=== PATIENT | female | born 1940 | race Caucasian/White ===

== ENCOUNTER 2016-09-23 01:40 | Observation (INO) | payer MEDICARE ==
[2016-09-23] MEDS ORDERED: Ondansetron INJ* 2 MG/ML VIAL IV ONE (01:54)
[2016-09-23 03:18] LABS: Hematocrit 28 % (35-47); Mean Corpuscular HGB Conc 32 g/dl (31-36); Mean Corpuscular Hemoglobin 27 pg (27-31); Mean Corpuscular Volume 84 fL (80-97); Mean Platelet Volume 10 um3 (7.4-10.4); Red Blood Count 3.31 10^6/ul (4.0-5.4); Red Cell Distribution Width 15 % (10.5-15); White Blood Count 7.7 10^3/ul (3.5-10.8)
[2016-09-23 03:35] LABS: Albumin 3.6 g/dL (3.2-5.2); BUN/Creatinine Ratio 33.3 (8-20); Calcium 8.8 mg/dL (8.6-10.3); EGFR African American 96.9 (>60); EGFR Non-African American 75.3 (>60); Globulin 3.1 g/dL (2-4); Total Bilirubin 0.7 mg/dL (0.2-1.0); Total Protein 6.7 g/dL (6.4-8.9)
[2016-09-23] MEDS: NS 0.9% 1000 ML* 1,000 ML IV ONE ×2 (04:16→06:29)
[2016-09-23] MEDS ORDERED: Iodixanol* (CONTRAST) 320 MG/ML 100 ML SDV IV ONE (04:48)
[2016-09-23] MEDS ORDERED: Acetaminophen TAB* 325 MG PO STA (05:32)
[2016-09-23] MEDS ORDERED: Morphine INJ* 4 MG/ML 1 ML SYRINGE IV ONE (05:48)
[2016-09-23] MEDS ORDERED: diPHENhydraMINE IV* 50 MG/ML 1 ml VIAL (BENADRYL) ONE (05:56)
[2016-09-23] MEDS ORDERED: diPHENhydraMINE IV* 50 MG/ML 1 ml VIAL (BENADRYL) IV ONE (05:56)
--- NOTE | 2016-09-23 06:12 | ED ---
Nic Prince Matthew, scribed for Ute Craftuel on 09/23/16 at 0445 . Abdominal Pain/Female - HPI Summary HPI Summary: A 76 y/o female presents to the ED with diffuse abdominal pain since 17:00 yesterday. The pain is rated 10/10 in severity. Associated symptoms include nausea, vomiting, and fever. The patient denies chest pain and SOB. She has a Hx of chronic diarrhea. - History of Current Complaint Stated Complaint: NAUSEA/VOMITING Time Seen by Provider: 09/23/16 01:46 Hx Obtained From: Patient ?: No Onset/Duration: Lasting Days, Still Present Timing: Constant Severity Initially: Moderate Severity Currently: Moderate Pain Intensity: 10 Pain Scale Used: 0-10 Numeric Location: Diffuse Radiates: No Associated Signs and Symptoms: Positive: Fever, Nausea, Vomiting. Negative: Chest Pain Allergies/Adverse Reactions: Allergies Allergy/AdvReac Type Severity Reaction Status Date / Time Heparin Allergy Severe THROMBOCYTO Verified 11/03/13 14:17 PENIA Omeprazole Allergy Severe Diarrhea Verified 11/03/13 14:17 Venlafaxine [From Effexor] Allergy Severe SWEATING Verified 11/03/13 14:17 Penicillins Allergy Mild Rash Verified 11/03/13 14:17 Statins Allergy Muscle Ache Verified 11/03/13 14:17 PMH/Surg Hx/FS Hx/Imm Hx Endocrine/Hematology History: Reports: Hx Thyroid Disease - TAKES SYNTHROID, Hx Anemia Denies: Hx Diabetes Cardiovascular History: Reports: Hx Angina, Hx Congestive Heart Failure, Hx Coronary Artery Disease, Hx Hypercholesterolemia, Hx Hypertension, Other Cardiovascular Problems/Disorders - 3 STENTS Denies: Hx Aneurysm, Hx Congenital Heart Disease, Hx Deep Vein Thrombosis, Hx Myocardial Infarction, Hx Valvular Heart Disease Respiratory History: Reports: Hx Sleep Apnea, Other Respiratory Problems/ Disorders - hx Pneumonia EX SMOKER 20 YEARS AGO Denies: Hx Asthma, Hx Chronic Obstructive Pulmonary Disease (COPD) GI History: Reports: Hx Gastroesophageal Reflux Disease Comment Only: Other GI Disorders - diverticulitis,gerd History: Reports: Other Problems/Disorders - IBS, GI bleed Denies: Hx Renal Disease Musculoskeletal History: Reports: Other Musculoskeletal History - fibromyalgia Sensory History: Reports: Hx Cataracts - SURGICALLY REMOVED, Hx Contacts or Glasses, Hx Hearing Aid Comment Only: 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 appy removed 40 yrs ago, tuba ligation, hysterectomy. decompression 5th facial nerve. ganglion removed foot. cataracts. cholecystectomy. 5 cardiac stents Infectious Disease History: No Infectious Disease History: Denies: Traveled Outside the [place] in Last 30 Days - Family History Known Family History: Positive: Cardiac Disease Family History: FHx of breast CA - Social History Alcohol Use: Occasionally Substance Use Type: Reports: None Smoking Status (MU): Former Smoker Review of Systems Positive: Fever Eyes: Negative ENT: Negative Cardiovascular: Negative Negative: Chest Pain Respiratory: Negative Negative: Shortness Of Breath Positive: Abdominal Pain - Diffuse, Vomiting, Nausea Genitourinary: Negative Musculoskeletal: Negative Skin: Negative Neurological: Negative Psychological: Normal All Other Systems Reviewed And Are Negative: Yes Physical Exam Triage Information Reviewed: Yes Vital Signs On Initial Exam: Initial Vitals Temp Pulse Resp BP Pulse Ox 98.8 F 70 15 135/57 95 09/23/16 01:52 09/23/16 01:52 09/23/16 01:52 09/23/16 01:52 09/23/16 01:52 Vital Signs Reviewed: Yes Appearance: Positive: Well-Appearing, No Pain Distress Skin: Positive: Warm, Skin Color Reflects Adequate Perfusion, Dry Head/Face: Positive: Normal Head/Face Inspection Eyes: Positive: EOMI, HAYLEY ENT: Positive: Normal ENT inspection Neck: Positive: Supple, Nontender Respiratory/Lung Sounds: Positive: Clear to Auscultation, Breath Sounds Present Cardiovascular: Positive: RRR, Pulses are Symmetrical in both Upper and Lower Extremities Abdomen Description: Positive: Soft, Other: - diffuse abdominal pain Bowel Sounds: Positive: Present Musculoskeletal: Positive: Normal, Strength/ROM Intact Neurological: Positive: Normal, Sensory/Motor Intact, Alert, Oriented to Person Place, Time Psychiatric: Positive: Affect/Mood Appropriate Diagnostics - Vital Signs Vital Signs Temp Pulse Resp BP Pulse Ox 09/23/16 01:52 98.8 F 98 15 135/57 95 - Laboratory Result Diagrams: 09/23/16 03:03 09/23/16 03:03 Lab Statement: Any lab studies that have been ordered have been reviewed, and results considered in the medical decision making process. - Radiology CXR Xray Interpretation: No Acute Changes Radiology Interpretation Completed By: ED Physician - CT CT A/P CT Interpretation: Positive (See Comments) - Mild diffuse mural thickening of the colon may represent colitis or could be due to portal hypertensive colopathy. Abdominal Pain Fem Course/Dx - Course Course Of Treatment: A 76 y/o female presents to the ED with diffuse abdominal pain since 17:00 yesterday. The pain is rated 10/10 in severity. Associated symptoms include nausea, vomiting, and fever. The patient denies chest pain and SOB. She has a Hx of chronic diarrhea. Labs were reviewed. CXR shows no acute changes. CT A/P shows mild diffuse mural thickening of the colon may represent colitis or could be due to portal hypertensive colopathy. In the ED course, the patient was given IV fluids, morphine, Tylenol, Zofran, and Benadryl. Discussed the case with Dr. Osuna who will admit the patient into his services. - Diagnoses Provider Diagnoses: Colitis - Provider Notifications Discussed Care Of Patient With: Dr. Osuna (Hospitalist) at 06:04 -- Notified of patient's history and will start the admission of the patient before passing the patient on to the day team. Discharge - Discharge Plan Condition: Stable Disposition: ADMITTED TO [facility] Referrals: Cecille Ahn MD [Primary Care Provider] - The documentation as recorded by the Nic palacios Matthew accurately reflects the service I personally performed and the decisions made by , Houston Craft.
[2016-09-23] MEDS ORDERED: NS 0.9% 1000 ML* 1,000 ML IV SCH ×2 (06:15→08:00)
[2016-09-23] MEDS ORDERED: Ondansetron INJ* 2 MG/ML VIAL IV PRN (07:47)
[2016-09-23] MEDS ORDERED: Nitroglycerin TAB 0.4 MG* 0.4 MG TAB SL PRN (07:48)
[2016-09-23] MEDS ORDERED: Modafinil TAB* 100 MG PO PRN (07:48)
[2016-09-23] MEDS: Aspirin EC Low Dose* 81 MG TAB.EC PO SCH (07:59)
[2016-09-23] MEDS: Gabapentin CAP(*) 300 MG PO SCH ×3 (07:59→21:19)
[2016-09-23] MEDS: Metoprolol Tartrate TAB* 50 mg PO SCH ×2 (07:59→21:20)
[2016-09-23] MEDS ORDERED: Enoxaparin(*) 40 MG/0.4 ML SYR SUBCUT SCH (08:00)
--- NOTE | 2016-09-23 08:44 | RAD ---
Indication: Abdominal pain, chest pain. Single frontal view of the chest performed at 0311 hours was reviewed. Comparison is made with previous exam dated May 06, 2013. No mediastinal shift is noted. Heart is of normal size and configuration. Lung ro appear clear. IMPRESSION: NO ACTIVE CARDIOPULMONARY DISEASE IS NOTED.
--- NOTE | 2016-09-23 09:15 | RAD ---
Indication: Abdominal pain, diarrhea. Contrast: Administered 99.9 ml of VISAPAQUE 320 mgi/ml CT of the abdomen and pelvis was performed after oral and IV contrast administration. Coronal and sagittal reconstructed images were obtained. The lung bases imaging no pleural fluid, nodules or masses. Heart demonstrates no pericardial effusion. The liver is normal in size. The liver demonstrates nodular contour consistent with cirrhosis. Small amount of ascites is noted. The spleen measures up to 13 cm. Common duct is not dilated. The gallbladder has been surgically resected. Common duct is not dilated. Pancreas demonstrates no mass or pancreatic ductal dilatation. No adrenal lesions are noted. The kidneys demonstrate symmetric nephrograms with no focal lesions. Low density lesion in the lower pole of the left kidney measuring 14 mm. Atherosclerotic aorta is noted. No dilated loops of bowel are noted. Urinary bladder is unremarkable. Small retroperitoneal lymph nodes are noted. They measure 2 7 mm in short axis just at the bifurcation. There is diffuse submucosal edema of the colon. The possibility of colitis or portal intensive colopathy should BE considered. Correlate with history of portal hypertension. IMPRESSION: CIRRHOSIS OF THE LIVER. SMALL AMOUNT OF ASCITES IS NOTED. SUBMUCOSAL EDEMA OF THE COLON WHICH MAY REPRESENT COLITIS ALTHOUGH THE POSSIBILITY OF PORTAL HYPERTENSIVE COLOPATHY SHOULD BE CONSIDERED.
[2016-09-23] MEDS: Cyanocobalamin TAB* 500 MCG PO SCH (09:59)
[2016-09-23] MEDS: Levothyroxine TAB* 88 MCG TAB PO SCH (09:59)
[2016-09-23] MEDS: Loperamide CAP* 2 MG PO PRN ×3 (11:45→17:26)
--- NOTE | 2016-09-23 18:00 | HP ---
HISTORY AND PHYSICAL: DATE OF ADMISSION: 09/23/16 PRIMARY CARE PHYSICIAN: Cecille See MD CHIEF COMPLAINT: Abdominal pain, nausea, and vomiting. HISTORY OF PRESENT ILLNESS: Ms. Andujar is a 76-year-old female with past medical history of CAD, iron deficiency anemia, cirrhosis of unknown etiology, TIA, fibromyalgia, and JAJA, who presents to the hospital with abdominal pain, nausea, vomiting, and diarrhea. The patient states she felt well yesterday. She visited her at [facility] and then in the evening she came home and shortly after she got home, she had onset of nausea and vomiting. She states she had 2 to 3 episodes of emesis that was nonbloody and nonbilious. She also had some bloating and diarrhea that has been ongoing. She states there is no blood in the diarrhea. She does have some chronic issues with diarrhea which she usually reports as explosive and made up of undigested food. This seems different. She states this was more oozing and persistent. The patient had some continuing dry heaves and nausea after her bouts of emesis and she was at her toilet at home, she felt very weak and could not go back to bed, so she called EMS. She states she has felt some chills lately. She has stable angina and had some chest discomfort after she had her CT scan but nothing prior to that. She has continued abdominal pain. Denies any shortness of breath, bleeding, dysuria. PAST MEDICAL HISTORY: 1. CAD status post stent placement. 2. Iron deficiency anemia. 3. Depression. 4. GERD. 5. Hypothyroidism. 6. Cirrhosis of unknown etiology. 7. TIA. 8. Fibromyalgia. 9. JAJA. PAST SURGICAL HISTORY: 1. Tonsillectomy. 2. Tubal ligation. 3. Cataract surgery. 4. Cholecystectomy. 5. 5th nerve decompression. 6. Hysterectomy. ALLERGIES: PENICILLIN, METFORMIN, OMEPRAZOLE, EFFEXOR, HEPARIN, and STATINS. FAMILY HISTORY: Significant for mother, two brothers, and a sister with CAD. Father with CAD and intracranial hemorrhage. SOCIAL HISTORY: The patient had smoked for about 17 years about half pack per day. Reports occasional alcohol use like a glass of wine. Denies any illicit drug use. PHYSICAL EXAMINATION GENERAL: The patient is an elderly female, lying in bed, in no apparent distress. VITAL SIGNS: On admission, temperature 98.8, heart rate of 70, respiratory rate of 15, O2 saturation 95% on room air, blood pressure 135/57. HEENT: Dry mucous membranes. No cervical adenopathy. Anicteric sclerae. CARDIOVASCULAR: Regular rate and rhythm. S1 and S2 present. No murmurs, gallops, or rubs. LUNGS: Clear to auscultation bilaterally. No wheezes, rales, or rhonchi. ABDOMEN: Soft, tender to palpation in periumbilical epigastric area and bilateral lower quadrants. No rebound or guarding. Bowel sounds are hyperactive. EXTREMITIES: Mild lower extremity edema. NEURO: The patient is alert and oriented x3. No focal neurological deficits. LABORATORY AND DIAGNOSTICS: White blood cell count of 7.7, hematocrit of 28, platelets of 136. INR of 1.02. Sodium of 136, potassium 4.0, chloride of 104, carbon dioxide 23, BUN of 25, creatinine 0.75, glucose of 137, lactic acid of 1.5. LFTs within normal limits. Troponin of 0.00. Lipase of 26. CT abdomen and pelvis shows cirrhosis of the liver, small amount of ascites, submucosal edema of the colon which may represent colitis or the possibility of portal hypertensive colopathy should be considered. Chest x-ray personally reviewed shows no acute disease. EKG shows normal sinus rhythm. C. diff negative. ASSESSMENT AND PLAN: Viral gastroenteritis in a 76-year-old female with a past medical history of coronary artery disease, iron deficiency anemia, depression, newly diagnosed cirrhosis of unknown etiology, gastroesophageal reflux disease, hypothyroidism, transient ischemic attack, fibromyalgia, and obstructive sleep apnea. 1. Viral gastroenteritis. We will treat supportively with antiemetics, started IV fluids; however, once the patient got to the floor, she had resolution of her nausea and started taking clear liquids and tolerated that well. We will hold on additional IV fluids. At this time, she does not seem overly dehydrated. No clear evidence of infection at this point. No indication for antibiotics. 2. Coronary artery disease status post stent placement. Continue home aspirin and metoprolol. 3. Cirrhosis. Currently being worked up as an outpatient. Has minimal ascites on exam. No evidence of encephalopathy or LFT abnormalities. 4. Hypothyroidism. Continue home Synthroid. 5. Hypertension. Hold home irbesartan. 6. Thrombocytopenia. Seems like this has been an ongoing issue for the patient 2/2 cirrhosis 7. Code status. The patient is a DNR. TIME SPENT: Total time spent on this admission, 45 minutes, more than half the time spent face to face with the patient counseling and coordinating care. CC: Cecille See MD* [id number]/[facility] #: [id number] MTDD
[2016-09-23] MEDS: HYDROmorphone* 1 MG/ML 1 ML SYR IV SLOW PU PRN ×2 (18:18→22:21)
[2016-09-24] MEDS: Levothyroxine TAB* 88 MCG TAB PO SCH (06:07)
[2016-09-24 06:47] LABS: BUN/Creatinine Ratio 17.4 (8-20); Calcium 7.9 mg/dL (8.6-10.3); EGFR African American 106.7 (>60); EGFR Non-African American 82.9 (>60); Potassium 3.3 mmol/L (3.5-5.0)
[2016-09-24 09:20] VITALS: BP 130/56
[2016-09-24] MEDS: Aspirin EC Low Dose* 81 MG TAB.EC PO SCH (09:35)
[2016-09-24] MEDS: Cyanocobalamin TAB* 500 MCG PO SCH (09:35)
[2016-09-24] MEDS: Gabapentin CAP(*) 300 MG PO SCH (09:35)
[2016-09-24] MEDS: Metoprolol Tartrate TAB* 50 mg PO SCH (09:36)
[2016-09-24] MEDS: Loperamide CAP* 2 MG PO PRN (10:31)
--- NOTE | 2016-09-24 10:59 | DCNOTE ---
Patient seen this morning. [place] well overnight, did not have any further diarrhea, N/V. This AM had some recurrence of diarrhea and some mild crampy pain. No N/V. On exam, RRR, s1 and s2 present, no m/g/r, abd soft, mild lower quadrant tenderness, no rebound/guarding, BS+ Labs stable. Has been off IVF since yesterday. Will discharge home with supportive care (imodium, analgesia, antiemetics)
--- NOTE | 2016-09-26 04:28 | DS ---
DISCHARGE SUMMARY: DATE OF ADMISSION: 09/23/16 DATE OF DISCHARGE: 09/24/16 PRIMARY CARE PHYSICIAN: Cecille See MD PRINCIPAL DISCHARGE DIAGNOSIS: Viral gastroenteritis. SECONDARY DIAGNOSES: 1. Coronary artery disease, status post stent placement. 2. Iron deficiency anemia. 3. Depression. 4. Gastroesophageal reflux disease. 5. Hypothyroidism. 6. Cirrhosis of unknown etiology. 7. Transient ischemic attack. 8. Fibromyalgia. 9. Obstructive sleep apnea. DISCHARGE MEDICATION REGIMEN: 1. Loperamide 2 mg by mouth every 4 hours as needed for diarrhea. 2. Zofran 4 mg p.o. every 6 hours as needed for nausea. 3. Simethicone 80 mg by mouth times daily as needed for bloating. 4. Modafinil 100 mg by mouth daily as needed for dizziness. 5. Nitroglycerin 0.4 mg sublingual every 5 minutes as needed for chest pain. 6. Metoprolol 50 mg by mouth 2 times daily. 7. Lasix 40 mg by mouth 2 times daily, to be resumed after diarrhea resolved. 8. Gabapentin 300 mg by mouth 3 times daily. 9. Synthroid 88 mcg by mouth daily. 10. Vitamin D3 5000 units by mouth daily. 11. Vitamin B12 1000 mcg by mouth daily. 12. Aspirin 81 mg by mouth daily. 13. Probiotic 4 mg by mouth daily. 14. Hydrocodone/acetaminophen 5/325 one tablet by mouth every 4 hours as needed for pain. 15. Irbesartan 75 mg by mouth daily. STUDIES DONE DURING HOSPITALIZATION: CT abdomen and pelvis with contrast, impression: Cirrhosis of the liver, small amount of ascites noted, submucosal edema of the colon, which may represent colitis, although the possibility of portal hypertensive colopathy should be considered. Chest x-ray, impression: No active cardiopulmonary disease is noted. HISTORY OF PRESENT ILLNESS AND HOSPITAL SUMMARY: Please see my history and physical for full details. Briefly, Ms. Andujar is a 76-year-old female with a past medical history as above, who presented to the hospital with nausea, vomiting, and diarrhea. By the time the patient arrived in the hospital, her symptoms had largely resolved. She was checked for C. diff, which was negative. She was given Imodium with some improvement of the diarrhea. On the day of admission, she was tolerating a clear diet. The following day, her diet was advanced to solids. She still had some loose stools while in the hospital; however, had no further nausea or vomiting. Her labs remained stable. She was discharged home with Imodium and some other supportive medications. This was felt to be a viral gastroenteritis. Follow up with her PCP as an outpatient. She was also instructed to hold her home Lasix until her diarrhea resolved. TIME SPENT: Total time spent on this discharge 35 minutes. This is summary of the hospitalization. Please see the full medical record for further details. CC: Cecille See MD* [id number]/[facility] #: [id number] MTDD
== END 2016-09-24 11:55 | disposition home or self-care (01) ==
LOC: ED 01:40 → MEDTELE 07:20
PROVIDERS: ADMIT Hospitalist; ATTEND Hospitalist
DX: A08.4 Viral intestinal infection, unspecified (principal); I25.119 Atherosclerotic heart disease of native coronary artery with unspecified angina pectoris; Z95.1 Presence of aortocoronary bypass graft; D50.9 Iron deficiency anemia, unspecified; K21.9 Gastro-esophageal reflux disease without esophagitis; F32.9 Major depressive disorder, single episode, unspecified; K74.60 Unspecified cirrhosis of liver; Z86.73 Personal history of transient ischemic attack (TIA), and cerebral infarction without residual deficits; I10 Essential (primary) hypertension; E03.9 Hypothyroidism, unspecified; D69.6 Thrombocytopenia, unspecified; G47.33 Obstructive sleep apnea (adult) (pediatric); M79.7 Fibromyalgia; Z79.899 Other long term (current) drug therapy; E78.00 Pure hypercholesterolemia, unspecified; Z88.0 Allergy status to penicillin; Z88.5 Allergy status to narcotic agent; Z88.1 Allergy status to other antibiotic agents; Z88.8 Allergy status to other drugs, medicaments and biological substances; Z87.891 Personal history of nicotine dependence
CPT/HCPCS: 36415; 71010; 74177; 80048; 80053; 83605; 83690; 83880; 84484; 85025; 85610; 85730; 87493; 93005; 96361; 96374; 96375; 96376; 99284; A9270-GY; G0378; J1170; J1200; J2270; J2405; Q9967